=== PATIENT | male | born 1970 | race Caucasian/White ===

== ENCOUNTER 2018-08-13 11:53 | Inpatient (IN) | payer OTHER ==
[~2018-08-13] VITALS: Ht 162.6 cm; Wt 108.9 kg
[2018-08-13] MEDS ORDERED: MOXIFLOXACIN H400 MG (12:46)
== END 2018-08-19 15:34 | disposition home or self-care (01) | DRG 392 ==
LOC: ER 11:53 → SEC-K 19:37 → SURH 19:37 → SURG 23:14 → SURH 08-14 12:38
PROVIDERS: ADMIT Internal Medicine
PROC: BW21ZZZ Computerized Tomography (CT Scan) of Abdomen and Pelvis (ICD-10-PCS; principal; 2018-08-13)
DX: K57.32 Diverticulitis of large intestine without perforation or abscess without bleeding (principal); E86.0 Dehydration; Z88.0 Allergy status to penicillin

== ENCOUNTER 2021-01-15 09:00 | Inpatient (IN) | payer OTHER ==
[~2021-01-15] VITALS: Ht 162.6 cm; Wt 136.1 kg
[~2021-01-15 09:00] MED LIST: MOXIFLOXACIN H400 MG
[2021-01-22] MEDS ORDERED: HYDROCORTISONE30 G4 (14:53)
[2021-01-22] MEDS ORDERED: INTESTINEX680 M1 (14:53)
[2021-01-22] MEDS ORDERED: RABEPRAZOLE SOD20 MG (14:53)
== END 2021-01-24 14:24 | disposition home or self-care (01) | DRG 331 ==
LOC: O/R 01-22 06:30 → SURH 01-22 06:30 → SURG 01-22 06:30 → SURH 01-22 08:30 → SURG 01-22 11:11 → SURH 01-23 16:04
PROVIDERS: ADMIT Surgery; ATTEND Surgery
PROC: 0DTN4ZZ Resection of Sigmoid Colon, Percutaneous Endoscopic Approach (ICD-10-PCS; 2021-01-22)
PROC: 0DJD8ZZ Inspection of Lower Intestinal Tract, Via Natural or Artificial Opening Endoscopic (ICD-10-PCS; 2021-01-22)
PROC: 3E0F7SF Introduction of Other Gas into Respiratory Tract, Via Natural or Artificial Opening (ICD-10-PCS; 2021-01-22)
PROC: 4A12X4Z Monitoring of Cardiac Electrical Activity, External Approach (ICD-10-PCS; 2021-01-22)
PROC: 4A033R1 Measurement of Arterial Saturation, Peripheral, Percutaneous Approach (ICD-10-PCS; 2021-01-22)
PROC: 0DTP4ZZ Resection of Rectum, Percutaneous Endoscopic Approach (ICD-10-PCS; principal; 2021-01-22 08:30)
DX: K57.20 Diverticulitis of large intestine with perforation and abscess without bleeding (principal); Z20.822 Contact with and (suspected) exposure to COVID-19